=== PATIENT | male | born 1945 | race Caucasian/White ===

== ENCOUNTER 2018-04-22 07:58 | Emergency (ER) | payer MEDICARE, OTHER ==
[~2018-04-22] VITALS: Ht 175.3 cm; Wt 78.0 kg
[2018-04-22 08:02] VITALS: BP 143/78
[2018-04-22] MEDS ORDERED: TRIA15CR61 TOP (08:42)
[2018-04-22] MEDS ORDERED: NAPR-56 PO (08:42)
[2018-04-22] MEDS ORDERED: CEPH500C2 PO (08:42)
[2018-04-22] MEDS ORDERED: FAMO40TA7 PO (09:01)
== END 2018-04-22 09:06 | disposition home or self-care (01) ==
LOC: ER 07:59
DX: M70.21 Olecranon bursitis, right elbow (principal); J44.9 Chronic obstructive pulmonary disease, unspecified; M10.9 Gout, unspecified; Z79.899 Other long term (current) drug therapy
CPT/HCPCS: 99284

== ENCOUNTER 2025-02-25 21:54 | Emergency (ER) | payer MEDICARE ==
[~2025-02-25] VITALS: Ht 175.3 cm; Wt 79.5 kg
[~2025-02-25 21:54] MED LIST: FAMO40TA7 PO
[2025-02-25 22:13] VITALS: TEMP 98.2
[2025-02-25] MEDS ORDERED: tetanus & diphtheria toxoid (Td) vaccine 0.5ml IMVAC ONE (22:30)
[2025-02-25] MEDS: TETanus/Pertussis (Acell)/Diphther VAC/PF (Tdap-Adult) 0.5ml syringe IMVAC ONE (22:38)
[2025-02-25] MEDS: acetaminophen 325mg tablet PO ONE (22:46)
[2025-02-25] MEDS: amox tr/potassium clavulanate 875/125mg TAB PO ONE (23:25)
[2025-02-25] MEDS ORDERED: AMOX-117 PO (23:40)
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
[2025-02-26 00:01] VITALS: BP 127/61; PULSE 89; RESP 18; O2SAT 100
== END 2025-02-26 00:01 | disposition home or self-care (01) ==
LOC: ER 21:54
DX: S51.851A Open bite of right forearm, initial encounter (principal); W50.3XXA Accidental bite by another person, initial encounter; J44.9 Chronic obstructive pulmonary disease, unspecified; Y93.89 Activity, other specified; Y92.89 Other specified places as the place of occurrence of the external cause; Y99.8 Other external cause status
CPT/HCPCS: 90715; 99283; A6222; A6258; A6449; G0008; J7030; 90471